=== PATIENT | female | born 1965 | race Two or more races ===

== ENCOUNTER 2024-09-05 07:10 | Day surgery (SDC) | payer MEDICAID, SELFPAY ==
[2024-09-04 14:27] VITALS: BMI 31.6
[2024-09-05] VITALS (12 sets, daily range): BP systolic 127–179; BP diastolic 80–108; PULSE 69–97; RESP 12–20; TEMP 36.2–36.6; O2SAT 92–98; BMI 31.2
--- NOTE | 2024-09-05 08:51 | SUR.PHASEII ---
0851: Pt. AAOx4, vitals stable, breathing unlabored, no complaint of pain or nausea, no dressing in place,no active bleed noted, report received from Riaz DODGE.
--- NOTE | 2024-09-05 09:22 | SUR.PHASEII ---
0921: Pt. AAOx4, vitals stable, breathing unlabored, no complaint of pain or nausea, no dressing in place, no active bleed noted, pt. able to pass gas, pt. tolerated sips of water well, pt. ambulated to wheelchair with steady gait and no assist, no complications. Gave discharge instructions to the pt. and her ride using sign language interpreter, both verbalized understanding and had no further questions. Pt. left with all personal belongings.
== END 2024-09-05 09:21 | disposition home or self-care (01) ==
PROVIDERS: PCP Family Medicine; Referring Provider Surgery; Visit Provider Surgery
PROC: 0DJD8ZZ Inspection of Lower Intestinal Tract, Via Natural or Artificial Opening Endoscopic (ICD-10-PCS; CPT 45378; principal; 2024-09-05 10:00)
DX: Z12.11 Encounter for screening for malignant neoplasm of colon (principal); K63.5 Polyp of colon
CPT/HCPCS: 45380; A4649; J1200; J2250; J3010

== ENCOUNTER 2024-09-25 14:00 | Outpatient (AMB) | payer MEDICAID, SELFPAY ==
[2024-09-25 14:07] VITALS: BP 128/81; PULSE 68; RESP 18; TEMP 36.8; O2SAT 97; BMI 31.6
--- NOTE | 2024-09-25 14:07 | PD.GSCLVISIT ---
Vital Signs - [facility] 09/25/24 14:07 Height 1.65 m Height Method Stated Weight 86.324 kg Weight Measurement Method Standing Scale BMI 31.6 BP 128/81 Blood Pressure Source Automatic Cuff Blood Pressure Location Left Upper Arm Position Sitting Respiration 18 Pulse 68 Pulse Source Monitor Temp 98.2 F Temp Source Temporal Artery Scan Pulse Oximetry (%) 97 Oxygen Delivery Method Room Air Med/Allergies Allergies & Medications Allergies No Known Allergies Allergy (Verified 09/25/24 14:08) Medication Reconciliation diclofenac potassium 25 mg capsule 75 mg PO DAILY PRN pain 11/18/23 [History Confirmed 09/25/24] MA Intake Visit Data Collection New Patient or Established: Established Patient (seen at [facility] within 3 years) Seen by Clinical Staff ONLY (RN/MA): No Reason for Visit:: COLONOSCOPY RESULTS Pain Present Currently: No Unix Manager Required: Yes PCP or OBGYN visit in last 3 months: Yes Hx Now: No Do You Feel Safe at Home: Yes Authorities Contacted: N/A Smoking Status Smoking Status: Never smoker Immunization / Flu Flu Vaccine in the Last 12 Months: No Flu Vaccine Exclusion Criteria: No Exclusion Criteria Past Medical History Past Medical History NEUROLOGIC: Negative Neurological Disorders or Seizures CARDIAC: Negative Cardiac Disorders or Congestive Heart Failure RESPIRATORY: Negative Chronic Obstructive Pulmonary Disease (COPD) GASTROINTESTINAL: Positive Gastrointestinal Disorders (constipation,gastritis) GENITOURINARY: Negative Genitourinary Disorders or Renal Disease MUSCULOSKELETAL: Positive Degenerative Joint Disease ENDOCRINE: Negative Endocrine Disorders, Diabetes Mellitus Type 1 or Diabetes Mellitus Type 2 (pre) HEMATOLOGIC: Negative Blood Disorders OTHER HISTORY: Negative Autoimmune Disease, Blood Transfusions, Anesthesia Reactions or Cancer Social History SMOKING STATUS: Smoking status: Never smoker SECOND HAND EXPOSURE: second hand exposure: No ALCOHOL: Alcohol Intake: Never HOUSING: Housing: House LIVES WITH: Lives With: Family and Significant Other HPI HPI Narrative 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 Pt reports feeling well overall, does report some burning with defecation after eating spicy foods but states this has improved since the colonoscopy ROS Review of Systems Systems Reviewed: All systems reviewed, normal except as documented Objective/Exam General General Appearance: alert, cooperative and well groomed Resp Respiratory exam: Absent respiratory distress Results Colonoscopy report reviewed: inadequate prep, small polyp which was not adenomatous Assessment & Plan Diagnosis / Problem List (1) Encounter to discuss colonoscopy results: Status: Acute Assessment & Plan: 59F s/p screening colonoscopy 09/2024 with inadequate prep and small non-adenomatous polyp. I explained that due to suboptimal prep I would recommend screening in 7-10 years. All questions were answered and pt expressed understanding Office Procedures GNS Level of Care Nursing/Assessment Patient Status: Established Patient Nursing Assessment/Reassesment: Medication Reconciliation, Update PMH in EMR and Vital Signs Coordination of Care: Complex Care and Chronic Disease 1-5, Consent,records obtained, informed consent, Education Simp Pt/Fam, Results/Orders obtained and Staff clarify orders Special Needs: Language special needs Established Patient Charge Established Patient Point Assignment: 90 Established Patient Point Charge: EP Level 3 (80-115) Patient Portal Questionaires Social History Living Situation History Housing: House Tobacco History Smoking Status: Never smoker Second Hand Smoke Exposure: No Alcohol History Alcohol Intake: Never Domestic Abuse History Do You Feel Safe at Home: Yes Review of Systems Report any current symptoms Only answer those that you have currently: Past Medical History Past Medical History Have you ever been diagnosed with any of the following: Neurological Problems Seizures: No Cardiology Problems Congestive Heart Failure: No Respiratory Problems Chronic Obstructive Pulmonary Disease (COPD): No Genital/Urinary Problems Renal Disease: No Musculoskeletal Problems Degenerative Joint Disease: Yes Endocrine Problems Diabetes Mellitus Type 1: No Diabetes Mellitus Type 2: No (pre) Other Problems Autoimmune Disease: No Blood Transfusions: No Anesthesia Reactions: No Cancer: No
== END 2024-09-25 14:30 | disposition home or self-care (01) ==
PROVIDERS: PCP Physician Assistant; Referring Provider Physician Assistant; Supervising Provider Surgery; Visit Provider Surgery
DX: Z71.2 Person consulting for explanation of examination or test findings (principal); D12.6 Benign neoplasm of colon, unspecified
CPT/HCPCS: 99213; G0463